=== PATIENT | male | born 1985 | race Caucasian/White ===

== ENCOUNTER 2017-02-19 08:45 | Day surgery (SDC) | payer MEDICARE, OTHER ==
[~2017-02-19] VITALS: Ht 185.4 cm; Wt 129.3 kg
[~2017-02-19 08:45] MED LIST: CLONAZEPAM0.5 MG PO; FENTANYL1 EAC2 TD; LEVOTHYROXINE50 MCG PO; OXYCODONE HCL10 MG PO; TESTOSTERO100 MG/1 M IM; TIZANIDINE HCL4 MG PO; VENTOLIN HFA18 GM INH
--- NOTE | 2017-02-19 12:27 | NUR ---
02/19/17 1227 Jelly Shelley 1220-PATIENT ARRIVED TO PACU ON 8L MASK O2 SAT 97% ORAL AIRWAY IN PLACE. PATIENT REACTIVE SHAKES HEAD WITH EYES CLOSED. RIGHT INGUINAL INCISION CDI.
[2017-02-19] MEDS ORDERED: IBUPROFEN600 MG PO (12:41)
[2017-02-19] MEDS ORDERED: MAPAP325 MG PO (12:41)
[2017-02-19] MEDS ORDERED: OXYCODON-ACETA1 EAC2 PO (12:42)
[2017-02-19] MEDS ORDERED: PERCOCET 7.5-31 EACH PO (14:47)
--- NOTE | 2017-02-19 15:01 | NUR ---
PATIENT TOLERATED LUNCH. ASSISTED OOB AND TO BATHROOM. GAIT STEADY. VOID WITHOUT DIFFICULTY. STAND BY ASSIST BACK TO ROOM. GAIT STEADY. PATIENT GETTING DRESSED.
--- NOTE | 2017-02-19 15:43 | NUR ---
1520: IV DC'D WNL. TIP INTACT. DRESSING APPLIED. DISCHARGE INSTRUCTIONS GIVEN TO PATIENT AND FIANCE. 1530: PATIENT DISCHARGED TO HOME WITH FIANCE VIA WHEELCHAIR.
--- NOTE | 2017-02-20 10:00 | OR ---
[facility] [address], [place] [address] Signed DATE OF OPERATION: 02/19/2017 SURGEON: Tung Tukcer MD PREOPERATIVE DIAGNOSES: 1. Right inguinal hernia. 2. Obesity. POSTOPERATIVE DIAGNOSES: 1. Right direct inguinal hernia. 2. Obesity. PROCEDURE: Repair of right direct inguinal hernia with implantation of Prolene mesh (underlay technique). SURGEON: Tung Tucker MD ANESTHESIA: General (Sachi Perez, CHIEF CONTROLLER) and local 20 mL of 0.25% Marcaine with epinephrine. INDICATION: This 31-year-old obese white man is a patient of Dr. Russell Winchester in [place], [place]. He has been identified as having a reducible right inguinal hernia. He has had numbness and tingling in the right groin area, particularly when sleeping flat. A large bulge and reducible hernia is noted. He does not have heavy lifting responsibilities at work and is considered disabled related to low back pain and intervertebral disk problem since 2008 with subsequent surgery on L4-5 and subsequent chronic pain problems. He lives in the [facility]. He is admitted at this time to undergo right inguinal hernia repair, understand the risks of bleeding, infection, recurrence and so on. FINDINGS: The patient is rather obese and the operative site was deep and challenging. The hernia defect was found to be a direct type defect. There was no indirect hernia sac. The attenuated fibers of the floor of the transversalis were noted laterally, but not medially, and an enlarged ring was the general source for his hernia issue. Implantation of Prolene mesh in an underlay technique was used to effect repair. DESCRIPTION OF PROCEDURE: Electronically Signed By: TUNG TUCKER MD 02/20/17 1000 PATIENT NAME: TRACY BACA OPERATIVE REPORT DATE OF : 85 PHYSICIAN: TUNG TUCKER MD REPORT #: [id number] REPORT IS CONFIDENTIAL AND NOT TO BE RELEASED WITHOUT AUTHORIZATION [facility] [address], [place] [address] Signed The patient was brought to the operating room, given a general endotracheal anesthetic. Sequential compression device stockings used and heparin subcutaneously administered. Preoperative antibiotics were given as well. Lower abdomen was clipped and prepared with chlorhexidine solution and draped sterilely. A curvilinear incision was made cephalad to the pubic tubercle on the right side and dissection carried through the thick abdominal wall pannus. Inferior epigastric vessels were encountered and ligated with 3-0 Vicryl ties. The external oblique was incised along its fibers revealing the underlying cord structures including cremasteric muscle fibers of the cord. Relatively large ilioinguinal nerve branch was identified and dissected free from the cremasterics and reflected laterally protecting it from harm. Using blunt electrocautery dissection, the cord was ultimately freed and encircled with a Java drain. Elevation of the cord structures showed to be bulky. Cremasteric muscle fibers were incised revealing the cord structures more fully and turned out. The defect was predominantly a direct defect without distinct and an independent hernia sac. Simple invagination of the herniated properitoneal contents would be sufficient to reduce the hernia. The attenuated fibers of the fascia transversalis were incised with electrocautery. A segment of Prolene mesh was cut to an elliptical configuration and secured in an underlay technique with interrupted 2-0 Prolene suture. A defect was cut in the graft to accommodate the cord structures, which were secured laterally taking extreme care to avoid incorporation of the ilioinguinal nerve branch origin. At conclusion, excellent repair was afforded in this underlay technique. 20 mL of 0.25% Marcaine with epinephrine was injected locally. Irrigation was undertaken as well. The cord and ilioinguinal nerve were replaced in the inguinal canal and the external oblique closed over the cord structures with running 2-0 Vicryl suture. Ruddy's layer was reapproximated with interrupted 2-0 Vicryl and skin closed with running subcuticular 3-0 Vicryl. Steri-Strips were applied as was a Mepilex silver sponge dressing and an OpSite. The patient was ultimately extubated and transferred to recovery room in good condition having suffered no complication. Sponge, needle, and instrument counts reported as correct x3. Tung Tucker MD /MODL Electronically Signed By: TUNG TUCKER MD 02/20/17 1000 PATIENT NAME: TRACY BACA OPERATIVE REPORT DATE OF : 85 PHYSICIAN: TUNG TUCKER MD REPORT #: [id number] REPORT IS CONFIDENTIAL AND NOT TO BE RELEASED WITHOUT AUTHORIZATION [address], [place] [address] Signed /[id number] cc: Russell Winchester MD Electronically Signed By: TUNG TUCKER MD 02/20/17 1000 PATIENT NAME: TRACY BACA OPERATIVE REPORT DATE OF : 85 PHYSICIAN: TUNG TUCKER MD REPORT #: [id number] REPORT IS CONFIDENTIAL AND NOT TO BE RELEASED WITHOUT AUTHORIZATION
== END 2017-02-19 15:30 | disposition home or self-care (01) ==
LOC: DS 08:45
PROVIDERS: Surgery
PROC: 0YU50JZ Supplement Right Inguinal Region with Synthetic Substitute, Open Approach (ICD-10-PCS; principal; 2017-02-19 10:15)
DX: K40.90 Unilateral inguinal hernia, without obstruction or gangrene, not specified as recurrent (principal); M54.9 Dorsalgia, unspecified; E66.01 Morbid (severe) obesity due to excess calories; G89.29 Other chronic pain; G47.30 Sleep apnea, unspecified; J45.990 Exercise induced bronchospasm; E03.9 Hypothyroidism, unspecified; Z88.0 Allergy status to penicillin; Z88.8 Allergy status to other drugs, medicaments and biological substances; Z87.891 Personal history of nicotine dependence; Z98.1 Arthrodesis status; Z98.890 Other specified postprocedural states; Z99.89 Dependence on other enabling machines and devices; Z68.38 Body mass index [BMI] 38.0-38.9, adult
CPT/HCPCS: 00830; C1781; J0330; J0690; J1200; J1644; J1885; J2250; J2704; J3010; J3475; J7120